=== PATIENT | male | born 1960 | race Caucasian/White ===

== ENCOUNTER 2016-10-21 04:47 | Emergency (ER) | payer BC, OTHER ==
[2016-10-21 05:03] LABS: Urine Bilirubin Negative (NEGATIVE); Urine Blood 250 /ul (NEGATIVE); Urine Ketone Negative (NEGATIVE); Urine Nitrite Negative (NEGATIVE); Urine Protein 15 mg/dL (NEGATIVE); Urine Specific Gravity >=1.030 SP.GR. (1.005-1.030); Urine Urobilinogen Normal (NORMAL)
--- NOTE | 2016-10-21 05:09 | ERNOTE ---
ER Male HPI Stated Complaint: KIDNEY STONES ER Male: urinary retention Source: patient Exam Limitations: no limitations Immunizations: IMMUNIZATION HX Immunizations Up to Date Yes History of Influenza Vaccine No Allergies/Adverse Reactions: Allergies erythromycin base [Erythromycin Base] Allergy (Mild, Verified 10/21/16 04:56) Nausea FROM PRE-OP ADMISSION ORDERS walnuts Allergy (Uncoded 10/21/16 04:56) Home Medications: HOME MEDICATIONS Ibuprofen 800 mg PO DAILY 05/17/12 [Last Taken Unknown] Omeprazole [Prilosec Generic] 20 mg PO DAILY 05/17/12 [Last Taken Unknown] sulfaSALAzine [Sulfasalazine Dr] 500 mg PO TID 01/12/13 [Last Taken Unknown] Ca Cmb No.1/Vit D3/B-6/FA/B12 [Vitamin D3 1,000 Unit Tablet] 4 each PO DAILY [Last Taken Unknown] Calcipotriene [Dovonex] 60 gm TP DAILY 02/05/13 [Last Taken Unknown] Multivitamins [Multivitamin Ewa] 1 cap PO DAILY 02/05/13 [Last Taken Unknown] Sildenafil Citrate [Viagra] 100 mg PO DAILY PRN 02/05/13 [Last Taken Unknown] Ciprofloxacin HCl [Cipro] 500 mg PO BID #20 tab 10/21/16 [Last Taken Unknown] HYDROcodone/ACETAMINOPHEN [Pryor 5-325] 1 - 2 tab PO Q6H PRN #20 tab 10/21/16 [ Last Taken Unknown] Tamsulosin HCl [Flomax] 0.4 mg PO DAILY@1800 #60 cap 10/21/16 [Last Taken Unknown] - History of Present Illness Narrative: pt complains of suprapubic pain and difficulty with urination. He denies any dysuria or fever or chills or back pain. Review of Systems - Review of Systems Constitutional: Present: no symptoms reported EYE: Present: no symptoms reported ENT: Present: no symptoms reported Respiratory: Present: no symptoms reported Cardiology: Present: no symptoms reported Gastrointestinal/Abdominal: Present: See HPI Genitourinary: Present: See HPI - Patient's Past Medical History Patient History - Medical: No pertinent hx, Kidney stone Patient History - Cardiac/Respiratory: History Unknown Patient History - Cancer: No Hx of Cancer Patient History - Surgical Procedures: Appendectomy, Cholecystectomy, Other - Social History Living Situations: home Smoking Status: Never smoker Patient requests Smoking Cessation Consult: No Initiate information on Smoking Cessation: No Alcohol Use: none Drug Use: none - Immunizations Immunizations Up to Date: Yes History of Influenza Vaccine: No Physical Exam - Physical Exam General Appearance: Present: wd/wn, alert, no apparent distress Neck: Present: normal inspection, nontender Respiratory: Present: no respiratory distress, normal breath sounds, no accessory muscle use, chest nontender, lungs clear Gastrointestinal/Abdominal: Present: normal bowel sounds, other - some tenderness in the suprapubic region but no rebound. Not a surgical abdomen. based on my exam I feel as if the bladder is distended Rectal Exam: Present: nontender, other - This examiner feels that the prostate appears enlarged on exam Back Exam: Present: normal inspection, normal range of motion. Absent: CVA tenderness (R) Extremity Exam: Present: normal inspection Neurological Exam: Present: alert, oriented, normal mood/affect, no motor/ sensory deficits ED Progress - Vital Signs Vital Signs: Vital Signs 10/21/16 04:53 Temperature 36.6 C Pulse Rate 64 Respiratory 18 Rate Blood Pressure 153/93 O2 Sat by Pulse 97 Oximetry - Progress/Reassessment Chief Complaint: Genitourinary Problem Plan - Plan Plan: On urinalysis patient has trace bacteria and blood. Initially he has an enlarged prostate. We treated for urinary tract infection with Cipro and referred to a urologist. Departure Clinical Impression: Nephrolithiasis Urinary tract infection Qualifiers: Urinary tract infection type: site unspecified Hematuria presence: with hematuria Qualified Code(s): N39.0 - Urinary tract infection, site not specified - Departure Disposition: Home self-care Condition: Good Instructions: Urinary Tract Infection, Adult, [id number] Additional Instructions: Please follow-up with a urologist or your primary care doctor for your enlarged prostate Referrals: Dmitry Mendoza DO [Primary Care Provider] - Prescriptions: Ciprofloxacin HCl [Cipro] 500 mg PO BID #20 tab HYDROcodone/ACETAMINOPHEN [Pryor 5-325] 1 - 2 tab PO Q6H PRN #20 tab PRN Reason: Pain Tamsulosin HCl [Flomax] 0.4 mg PO DAILY@1800 #60 cap
[2016-10-21 05:12] LABS: Urine Appearance Slightly Cloudy; Urine Bacteria TRACE; Urine Color Dark Yellow; Urine RBC >50 /hpf (0-5); Urine WBC None Seen /hpf (0-5)
--- OUTSIDE RECORDS SUMMARY | 2016-10-21 05:35 | XMS REPORT | Continuity of Care Document ---
:1960 Author Organization [facility] ([facility]) Address [address] [place] [address] Phone [phone] Care Team Providers Name Role Phone Otis Baldwin Primary Care Provider [phone] Source Comments This disclosure is being made pursuant to the Care Everywhere program, applicable federal and state laws, and may not contain all informaitonavailable regarding this patient.[facility] ([facility]) Active Allergies and Adverse Reactions No Active Allergies Current Medications Not on file Active Problems Not on file Immunizations Name Dates Previously Given Next Due Influenza, unspecified 03/31/2007 Social History Tobacco Use Types Packs/Day Years Used Date Never Assessed Last Filed Vital Signs Vital Sign Reading Time Taken Blood Pressure 135/84 03/31/2007 8:02 AM CDT Pulse 72 03/31/2007 8:02 AM CDT Temperature 36.5 C (97.7 F) 03/31/2007 8:02 AM CDT Respiratory Rate - - Height - - Weight 87.698 kg (193 lb 5.4 oz) 03/31/2007 8:02 AM CDT Body Mass Index - - Oxygen Saturation - - Plan of Care Health Maintenance Due Date Last Done Comments Hepatitis B Vaccine (1 of 3 - Primary Series) 1960 Tdap Vaccine 1969 Lipid Disorder Screening 1976 MMR Vaccine 1976 Td Vaccine 1976 Colonoscopy 07/15/2008 Prostate Cancer Screening 2008 Influenza Vaccine: Seasonal (#1) 01/15/2016 03/31/2007 HCV Screening Completed 07/24/2004 Results from Last 3 Months Not on file
[2016-10-21 06:04] VITALS: BP 137/88
== END 2016-10-21 06:03 | disposition home or self-care (01) ==
LOC: ER 04:47
DX: N20.0 Calculus of kidney (principal); N39.0 Urinary tract infection, site not specified

== ENCOUNTER 2020-04-16 10:11 | Observation (INO) ==
[2020-04-16] MEDS ORDERED: NORMAL SALINE 1,000 ML IV ONE (10:47)
[2020-04-16 11:02] LABS: ALT 52 U/L (19-67); AST 55 U/L (0-48); Albumin * 3.2 gm/dl (3.4-5.0); Alkaline Phosphatase * 61 U/L (50-170); Anion Gap 14.1 mmol/L (6.8-13.8); BUN/Creatinine Ratio 12.7 (9.0-21.6); Bilirubin, Total 0.6 mg/dL (0.0-1.1); Blood Urea Nitrogen 18 mg/dL (6-23); Ca. Corrected For Albumin 9.1 mg/dL (8.4-10.2); Calcium * 8.8 mg/dL (7.9-10.9); Chloride 96 mmol/L (97-106); Glucose * 105 mg/dL (70-110); Potassium 3.1 mmol/L (3.4-4.6); Sodium 133 mmol/L (132-142); Total Protein 7.4 gm/dL (6.2-8.2); Troponin I Less than 0.017 ng/mL (0.00-0.10)
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
[2020-04-16 11:07] LABS: Hematocrit 49.5 % (42.0-52.0); Hemoglobin 16.6 gm/dL (13.5-18.0); Mean Cell Volume 87.1 fl (78-100); Mean Corpuscular Hemoglobin 29.2 pg (27-31); Mean Corpuscular Hgb Conc 33.5 g/dl (32-36); Mean Platelet Volume 11.2 fl (8-11.3); Platelet Count 133 K/mm3 (150-450); Red Blood Count 5.68 M/mm3 (4.7-6.0); Red Cell Distribution Width 12.8 % (11.5-14.0); White Blood Count 5.3 K/mm3 (4.0-10.5)
[2020-04-16] MEDS ORDERED: ONDANSETRON HCL/PF 2 MG/ML VIAL IV ONE (11:07)
[2020-04-16 11:09] LABS: Total Cells Counted 100
[2020-04-16] MEDS ORDERED: POTASSIUM CHLORIDE 20 MEQ/15 ML UDC PO STA (11:14)
[2020-04-16] MEDS ORDERED: POTASSIUM CHLORIDE 20 MEQ/15 ML UDC PO SCH (11:15)
[2020-04-16 11:37] LABS: Eosinophil 1 % (0-3); Lymphocyte 15 % (20-51); Monocyte 15 % (0-9); Neutrophil 69 % (42-75); Neutrophil # 3.7 K/mm3 (1.3-6.0); Platelet Estimate Decreased (NORMAL); RBC Morphology Normal (NORMAL)
[2020-04-16] MEDS: NORMAL SALINE 1,000 ML IV SCH ×2 (14:22→22:08)
[2020-04-16] MEDS: METHYLPREDNISOLONE SOD SUCC/PF 40 MG/ML VIAL IV SCH ×2 (14:22→21:18)
[2020-04-16] MEDS: ENOXAPARIN SODIUM 40 MG/0.4 ML SYRG SC SCH (14:22)
[2020-04-16] MEDS: sulfaSALAzine 500 MG TABLET PO SCH (17:41)
[2020-04-16] MEDS: BENZONATATE 100 MG CAPSULE PO SCH (17:41)
[2020-04-16] MEDS ORDERED: ROSUVASTATIN CALCIUM 10 MG TABLET PO SCH (21:00)
[2020-04-16] MEDS: FUROSEMIDE 20 MG TABLET PO SCH (21:18)
[2020-04-16] MEDS: LOSARTAN POTASSIUM 50 MG TABLET PO SCH (21:18)
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
[2020-04-17] MEDS: ENOXAPARIN SODIUM 40 MG/0.4 ML SYRG SC SCH ×2 (01:51→13:35)
[2020-04-17] MEDS: NORMAL SALINE 1,000 ML IV SCH (05:26)
[2020-04-17] MEDS: METHYLPREDNISOLONE SOD SUCC/PF 40 MG/ML VIAL IV SCH (06:26)
[2020-04-17] MEDS ORDERED: PANTOPRAZOLE SODIUM 40 MG TABLET.EC PO SCH (07:00)
[2020-04-17] MEDS ORDERED: LEVOTHYROXINE SODIUM 75 MCG TABLET PO SCH (07:00)
[2020-04-17 08:27] LABS: Albumin * 2.6 gm/dl (3.4-5.0); Anion Gap 12.3 mmol/L (6.8-13.8); BUN/Creatinine Ratio 15.9 (9.0-21.6); Bilirubin, Total 0.5 mg/dL (0.0-1.1); Ca. Corrected For Albumin 8.7 mg/dL (8.4-10.2); Calcium * 7.9 mg/dL (7.9-10.9); Carbon Dioxide 25.2 mmol/L (24-32.6); Potassium 3.5 mmol/L (3.4-4.6); Total Protein 6.1 gm/dL (6.2-8.2)
[2020-04-17] MEDS: LOSARTAN POTASSIUM 50 MG TABLET PO SCH (08:47)
[2020-04-17] MEDS: FUROSEMIDE 20 MG TABLET PO SCH (08:48)
[2020-04-17] MEDS: BENZONATATE 100 MG CAPSULE PO SCH ×3 (08:48→17:15)
[2020-04-17] MEDS: sulfaSALAzine 500 MG TABLET PO SCH ×3 (08:50→17:15)
[2020-04-17] MEDS ORDERED: ASPIRIN 81 MG TABLET.DR PO SCH (09:00)
[2020-04-17] MEDS ORDERED: SACCHAROMYCES BOULARDII 250 MG CAPSULE PO SCH (09:15)
[2020-04-17] MEDS ORDERED: predniSONE 20 MG TABLET PO SCH (17:00)
--- NOTE | 2020-04-17 17:41 | DS ---
(1) COVID-19 Problem: Acute (2) Hypokalemia Problem: Resolved (3) Diarrhea Problem: Acute Qualifiers: Diarrhea type: presumed infectious Qualified Code(s): R19.7 - Diarrhea, unspecified (4) HTN (hypertension) Problem: Chronic Date of Discharge:: 04/17/20 Hospital Course: 59-year-old male with history of hypertension, hyperlipidemia, sleep apnea admitted to the hospital for generalized weakness secondary to COVID-19 pneumonia infection, diarrhea, and hypokalemia. He was started on steroids but no antibiotics warranted. While here patient has been afebrile and maintained sats without O2 administration for roughly 12 hours. Patient was never short of breath aside from when he gets in coughing spells. His main concern was he just felt weak and was slightly dehydrated secondary to diarrhea. Kidney function improved with fluid resuscitation and diarrhea has patient potassium was replenished slowed down. And within normal him today. Patient started on probiotic which he is encouraged to continue. Patient will be sent home with another 6 days of oral steroids. No changes to his other chronic medications. Patient otherwise looks well and feels okay and is ready to go home. Procedures Performed: none Results and Findings: Lab Pending Results 04/16/20 10:32: WBC 5.3, RBC 5.68, Hgb 16.6, Hct 49.5, MCV 87.1, MCH 29.2, MCHC 33.5, RDW 12.8, Plt Count 133 L, MPV 11.2, Neutrophils % (Manual) 69, Lymphocytes % (Manual) 15 L, Monocytes % (Manual) 15 H, Eosinophils % (Manual) 1, Neutrophils # (Manual) 3.7, Lymphocytes # (Manual) 0.8 L, Monocytes # (Manual) 0.8, Eosinophils # (Manual) 0.1, Platelet Estimate Decreased L, RBC Morphology Normal 04/16/20 10:32: Sodium 133, Plasma Sodium 133, Potassium 3.1 L D, Chloride 96 L, Carbon Dioxide 26.0, Anion Gap 14.1 H, BUN 18, Creatinine 1.42 H, Est GFR (Non- Af Amer) 54 L, BUN/Creatinine Ratio 12.7, Random Glucose 105, Calcium 8.8, Calcium Adj for Albumin 9.1, Total Bilirubin 0.6, AST 55 H, ALT 52, Alkaline Phosphatase 61, Troponin I Less than 0.017, Total Protein 7.4, Albumin 3.2 L 04/16/20 10:32: Lactic Acid, Venous 1.5 04/17/20 00:09: Stool Occult Blood Negative 04/17/20 07:40: Sodium 138, Plasma Sodium 139, Potassium 3.5, Chloride 104, Carbon Dioxide 25.2, Anion Gap 12.3, BUN 20, Creatinine 1.26, Est GFR (Non-Af Amer) 62, BUN/Creatinine Ratio 15.9, Random Glucose 150 H D, Calcium 7.9, Calcium Adj for Albumin 8.7, Total Bilirubin 0.5, AST 48, ALT 48, Alkaline Phosphatase 54, Total Protein 6.1 L, Albumin 2.6 L Discharge Location: Home Disposition: Home self-care Condition: Fair Discharge Activity: Activity as tolerated Discharge Diet: General/regular food Prescriptions (Any new or edited meds): Saccharomyces Boulardii [Florastor] 250 mg PO DAILY #30 cap Transmission Status: Pending to [facility] predniSONE [Prednisone] 40 mg PO DAILY #12 tab Transmission Status: Pending to [facility] Complete Home Medications List: Complete Home Medication List: Ibuprofen 800 mg PO DAILY 05/17/12 sulfaSALAzine [Sulfasalazine Dr] 500 mg PO TID 01/12/13 Multivitamins [Multivitamin Ewa] 1 cap PO DAILY 02/05/13 Sildenafil Citrate [Viagra] 100 mg PO DAILY PRN 02/05/13 atorvastatin 20 mg tablet 20 mg PO DAILY 04/17/18 cholecalciferol (vitamin D3) 25 mcg (1,000 unit) capsule 1,000 unit PO DAILY 04/17/18 furosemide 20 mg tablet 20 mg PO BID 04/17/18 Irbesartan 75 mg PO BID 05/18/18 Pantoprazole Sodium 40 mg PO DAILY 05/18/18 aspirin 81 mg tablet,delayed release 81 mg PO DAILY 04/12/20 benzonatate 100 mg capsule 200 mg PO TID 10 Days #60 cap 04/12/20 levothyroxine 50 mcg capsule 75 mcg PO DAILY cap 04/12/20 Saccharomyces Boulardii [Florastor] 250 mg PO DAILY #30 cap 04/17/20 predniSONE [Prednisone] 40 mg PO DAILY #12 tab 04/17/20
[2020-04-17 17:45] VITALS: BP 119/71
== END 2020-04-17 18:45 | disposition home or self-care (01) ==
LOC: SCU 10:11 → ER 10:11 → SCU 12:50
PROVIDERS: ADMIT Family Medicine; ATTEND Family Medicine